=== PATIENT | female | born 1995 ===

== ENCOUNTER 2019-10-27 14:28 | Emergency (ER) | payer OTHER ==
[2019-10-27 14:43] VITALS: BP 117/74
--- NOTE | 2019-10-27 15:34 | UC ---
Throat Pain/Nasal Jovan HPI - HPI Summary HPI Summary: [address], PAIN WITH SWALLOWING AND LEFT EAR PAIN. NO FEVER. PATIENT STATES SHE GETS TONSILLITIS 2 OR 3 TIMES A YEAR. IT IS NOT USUALLY STREP. ALSO COMPLAINING OF CLOUDY, FOUL-SMELLING URINE FOR 2 DAYS. NO DYSURIA. STATES SHE GETS RECURRENT UTI SYMPTOMS OFTEN AFTER HAVING SEX. SHE HAS AN IUD AND IS NOT AT ALL CONCERNED ABOUT . - History of Current Complaint Chief Complaint: UCGU Stated Complaint: URINARY COMPLAINT Time Seen by Provider: 10/27/19 14:58 Hx Obtained From: Patient Hx Last Menstrual Period: 2 weeks ago, IUC Onset/Duration: Gradual Onset, Lasting Days, Still Present Severity: Moderate Pain Intensity: 4 Pain Scale Used: 0-10 Numeric Cough: None Associated Signs & Symptoms: Negative: Fever - Allergies/Home Medications Allergies/Adverse Reactions: Allergies Allergy/AdvReac Type Severity Reaction Status Date / Time No Known Allergies Allergy Verified 10/27/19 14:43 Home Medications: Home Medications Fluconazole 150 MG (NF) [Diflucan 150 mg (NF)] 150 mg PO ONCE #2 tab 10/27/19 [ Rx] Sulfamethox/Trimethoprim DS* [Bactrim DS 800/160 TAB*] 1 tab PO BID #10 tab 03/10 [Rx] PMH/Surg Hx/FS Hx/Imm Hx Previously Healthy: Yes - Surgical History Surgical History: None - Family History Known Family History: Positive: Non-Contributory - Social History Alcohol Use: Occasionally Substance Use Type: None Smoking Status (MU): Never Smoked Tobacco Review of Systems All Other Systems Reviewed And Are Negative: Yes Constitutional: Positive: Negative ENT: Positive: Sore Throat, Ear Ache Respiratory: Positive: Negative Cardiovascular: Positive: Negative Gastrointestinal: Positive: Negative Genitourinary: Positive: Other - CLOUDY, MALODOROUS URINE. Negative: Dysuria Physical Exam Triage Information Reviewed: Yes Appearance: Well-Appearing, No Pain Distress, Well-Nourished Vital Signs: Initial Vital Signs Temp 98.1 F 10/27/19 14:40 Pulse 85 10/27/19 14:40 Resp 16 10/27/19 14:40 BP 117/74 10/27/19 14:40 Pulse Ox 100 10/27/19 14:40 Laboratory Tests 10/27/19 10/27/19 15:06 15:36 POC Urine Color Yellow POC Urine Clarity Cloudy POC Urine pH 6.5 POC Ur Specif Allen 1.015 POC Urine Protein Negative POC Ur Glucose (UA) Negative POC Urine Ketones Negative POC Urine Blood Trace-intact A POC Urine Nitrite Positive A POC Urine Bilirubin Negative POC Urine Urobilinogen 0.2 POC U Leukocyte Esteras Trace A Group A Strep Rapid Negative Vital Signs Reviewed: Yes Eyes: Positive: Conjunctiva Clear ENT: Positive: Hearing grossly normal, Pharynx normal, TMs normal, Tonsillar swelling. Negative: Tonsillar exudate Neck: Positive: Supple, Tenderness @ - ANTERIOR CERVICAL LAD, Enlarged Nodes @ - MILD ANTERIOR CERVICAL LAD Respiratory Exam: Normal Cardiovascular Exam: Normal Abdomen Description: Positive: Nontender, Soft Musculoskeletal: Positive: No Edema Neurological: Positive: Alert Psychological: Positive: Age Appropriate Behavior Skin: Negative: Rashes Throat Pain/Nasal Course/Dx - Course Course Of Treatment: URINE DIP SUGGESTIVE OF UTI. BACTRIM TWICE DAILY FOR 5 DAYS. ENCOURAGED TO STAY WELL-HYDRATED. URINE CULTURE SENT WELL TESTING FOR MYCOPLASMA AND UREAPLASMA GIVEN PATIENT'S RECURRENT UTI SYMPTOMS. STREP NEGATIVE. LIKELY VIRALLY MEDIATED SORE THROAT THAT SHOULD RESOLVE ON ITS OWN WITH TIME. PATIENT IS DISTRESSED THAT SHE SEEMS TO GET VIRAL TONSILLITIS/ PHARYNGITIS RECURRENTLY WELL. ENCOURAGED HER TO FOLLOW UP WITH ENT. - Differential Dx/Diagnosis Provider Diagnosis: UTI (urinary tract infection), Acute pharyngitis Discharge ED - Sign-Out/Discharge Documenting (check all that apply): Patient Departure All imaging exams completed and their final reports reviewed: No Studies - Discharge Plan Condition: Stable Disposition: HOME Prescriptions: Fluconazole 150 MG (NF) [Diflucan 150 mg (NF)] 150 mg PO ONCE #2 tab Sulfamethox/Trimethoprim DS* [Bactrim DS 800/160 TAB*] 1 tab PO BID #10 tab Patient Education Materials: Urinary Tract Infection in Women (ED), Pharyngitis (ED) Referrals: [facility] [Provider Group] Harris Metz MD [Medical Doctor] - Additional Instructions: URINE TEST TODAY DOES SUPPORT A URINARY TRACT INFECTION. ANGELICA TREAT WITH BACTRIM TWICE DAILY FOR 5 DAYS. STAY WELL HYDRATED. SPECIMEN WILL ALSO BE SENT FOR UREAPLASMA AND MYCOPLASMA TESTING THESE ARE OTHER ATYPICAL POTENTIAL CAUSES OF UTI SYMPTOMS WHICH WOULD REQUIRE A DIFFERENT MEDICATION. WE WILL CALL YOU WITH ANY ABNORMAL RESULTS. STREP NEGATIVE. NO INDICATION FOR ANTIBIOTICS TO COVER FOR YOUR SORE THROAT HOWEVER GIVEN YOUR RECURRENT THROAT SYMPTOMS YOU MAY BENEFIT FROM EVALUATION BY AN ENT. CALL DR. METZ'S OFFICE AT YOUR CONVENIENCE. - Billing Disposition and Condition Condition: STABLE Disposition: Home
[2019-10-31 14:33] LABS: Ureaplasma parvum PCR Positive; Ureaplasma urealyticum PCR Positive
--- NOTE | 2019-10-31 22:35 | UC ---
- Progress Note Progress Note: PLEASE CALL PATIENT. URINE CULTURE POSITIVE FOR UREAPLASMA PARVUM. [facility] FOLLOW-UP IF NEEDED. Course/Dx - Diagnoses Provider Diagnoses: UTI (urinary tract infection), Acute pharyngitis Discharge ED - Sign-Out/Discharge Documenting (check all that apply): Post-Discharge Follow Up All imaging exams completed and their final reports reviewed: No Studies - Discharge Plan Condition: Stable Disposition: HOME Prescriptions: Doxycycline Monohydrate 1 cap PO BID #20 cap Fluconazole 150 MG (NF) [Diflucan 150 mg (NF)] 150 mg PO ONCE #2 tab Sulfamethox/Trimethoprim DS* [Bactrim DS 800/160 TAB*] 1 tab PO BID #10 tab Patient Education Materials: Urinary Tract Infection in Women (ED), Pharyngitis (ED) Referrals: [facility] [Provider Group] Harris Metz MD [Medical Doctor] - Additional Instructions: URINE TEST TODAY DOES SUPPORT A URINARY TRACT INFECTION. ANGELICA TREAT WITH BACTRIM TWICE DAILY FOR 5 DAYS. STAY WELL HYDRATED. SPECIMEN WILL ALSO BE SENT FOR UREAPLASMA AND MYCOPLASMA TESTING THESE ARE OTHER ATYPICAL POTENTIAL CAUSES OF UTI SYMPTOMS WHICH WOULD REQUIRE A DIFFERENT MEDICATION. WE WILL CALL YOU WITH ANY ABNORMAL RESULTS. STREP NEGATIVE. NO INDICATION FOR ANTIBIOTICS TO COVER FOR YOUR SORE THROAT HOWEVER GIVEN YOUR RECURRENT THROAT SYMPTOMS YOU MAY BENEFIT FROM EVALUATION BY AN ENT. CALL DR. METZ'S OFFICE AT YOUR CONVENIENCE. - Billing Disposition and Condition Condition: STABLE Disposition: Home
== END 2019-10-27 16:05 | disposition home or self-care (01) ==
LOC: UCEAST 14:28
DX: N39.0 Urinary tract infection, site not specified (principal); J02.9 Acute pharyngitis, unspecified
CPT/HCPCS: 81003; 87077; 87086; 87186; 87651; 87798; 99202; G0463